=== PATIENT | female | born 1985 | race African-American/Black ===

== ENCOUNTER 2017-08-26 09:38 | Emergency (ER) | payer MEDICAID, OTHER ==
[~2017-08-26] VITALS: Ht 172.7 cm; Wt 91.0 kg
[2017-08-26] MEDS ORDERED: PHEN240L4 PO (09:52)
[2017-08-26 11:19] VITALS: BP 134/83
== END 2017-08-26 13:11 | disposition home or self-care (01) ==
LOC: ER 10:15
DX: J06.9 Acute upper respiratory infection, unspecified (principal); F12.10 Cannabis abuse, uncomplicated; F17.210 Nicotine dependence, cigarettes, uncomplicated; Z98.890 Other specified postprocedural states
CPT/HCPCS: 71010; 81025; 87804; 99285; J7030; Z7610

== ENCOUNTER 2017-09-14 04:46 | Emergency (ER) | payer OTHER ==
[~2017-09-14] VITALS: Ht 378.5 cm; Wt 91.0 kg
[~2017-09-14 04:46] MED LIST: PHEN240L4 PO
[2017-09-14] MEDS ORDERED: IPRATROPIUM/ALBUTEROL 0.5-3(2.5)MG/3ML NEB HHN ONE (07:15)
== END 2017-09-14 08:11 | disposition home or self-care (01) ==
LOC: ER 05:29
DX: J32.9 Chronic sinusitis, unspecified (principal); J45.909 Unspecified asthma, uncomplicated; F12.10 Cannabis abuse, uncomplicated
CPT/HCPCS: 81025; 94640; 99283; J7620

== ENCOUNTER 2019-07-15 20:58 | Emergency (ER) | payer OTHER ==
[~2019-07-15] VITALS: Ht 172.7 cm; Wt 95.0 kg
[2019-07-15 21:30] VITALS: BP 118/71
== END 2019-07-15 23:34 | disposition home or self-care (01) ==
LOC: ER 20:58
DX: M25.532 Pain in left wrist (principal); V59.40XA Driver of pick-up truck or van injured in collision with unspecified motor vehicles in traffic accident, initial encounter; Y93.9 Activity, unspecified; Y92.410 Unspecified street and highway as the place of occurrence of the external cause
CPT/HCPCS: 73110; 99283